=== PATIENT | male | born 2000 | race Caucasian/White ===

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

== ENCOUNTER 2019-05-28 16:15 | Emergency (ER) | payer BC ==
[~2019-05-28] VITALS: Ht 175.3 cm; Wt 74.1 kg
[~2019-05-28 16:15] MED LIST: NAPR-985 PO
[2019-05-28 16:21] VITALS: BP 140/65; PULSE 70; RESP 18; Ht 175.3 cm; Wt 74.1 kg
[2019-05-28] MEDS ORDERED: LIDOCAINE 1%/EPI (1:100,000) (MDV) 20 ML INJ ONE (17:00)
--- NOTE | 2019-05-28 17:03 | ERD ---
ER Documentation Chief Complaint Chief Complaint intermittent R great toe pain x6 months w/ swelling HPI This is a 18-year-old healthy male presents for evaluation of her right great toe ingrown toenail for the last 6 months. Patient has been trying to follow-up with podiatry, however he has continued having pain, and presents for request to have it removed. He denies fever, he denies recent history of trauma. ROS All systems reviewed and are negative except as per history of present illness. Medications Home Meds Active Scripts Naproxen* (Naprosyn*) 500 Mg Tablet, 500 MG PO BID PRN for PAIN AND/OR INFLAMMATION, #30 TAB Prov:ESTEPHANIE VITAL PA-C 07/05/18 Allergies Allergies: Coded Allergies: No Known Drug Allergies (Verified Allergy, Mild, 12/15/10) PMhx/Soc History of Surgery: No Anesthesia Reaction: No Hx Neurological Disorder: No Hx Respiratory Disorders: No Hx Cardiac Disorders: No Hx Psychiatric Problems: No Hx Miscellaneous Medical Probl: No Hx Alcohol Use: No Hx Substance Use: No Hx Tobacco Use: No Physical Exam Vitals Vital Signs Date Temp Pulse Resp B/P (MAP) Pulse Ox O2 O2 Flow FiO2 Time Delivery Rate 05/28/19 97.1 70 18 140/65 99 16:21 (90) Physical Exam Const: Afebrile, nontoxic Head: Atraumatic Eyes: Normal conjunctiva ENT: Normal external ears, nose and mouth. Neck: Resp: Normal respiratory effort Cardio: Abd: Skin: Back: Ext: There is swelling and tenderness, with evidence of right ingrown toenail at the right great toe, cap refill is less than 2 seconds. Sensation intact light touch Neur: Awake and alert Psych: Normal mood and affect Results 24 hrs Current Medications Medications Dose Sig/Curry Start Time Status Last (Trade) Ordered Route PRN Stop Time Admin Dose Reason Admin Lidocaine/ 20 ml ONCE ONCE 05/28/19 DC Epinephrine INJ 17:00 05/28/19 (Xylocaine 17:01 1%/ Epi (Mdv) 20 ml) Lidocaine/ 20 ml ONCE INJ 05/28/19 Cancel Epinephrine 17:30 05/28/19 (Xylocaine 17:31 1%/ Epi (Pf)) Lidocaine/ 20 ml ONCE INJ 05/28/19 DC Epinephrine 17:30 05/28/19 (Xylocaine 17:31 1%/ Epi (Pf)) Procedures/MDM Abscess Incision and Drainage with irrigation by WARREN Rondon: Location: Right great toe Anesthesia: 1% lidocaine Technique: Removal of ingrown toenail Packing: [None] Complications: [Neurovascularly intact post procedure] 48 hour wound check. Scar minimization instructions given. This is a 18-year-old male who presents for evaluation of ingrown toenail. Removed without complication, patient's skin symptoms have stabilized while they have been evaluated in the department and are appropriate for outpatient care and work up. Exam and w/u not consistent w/ sepsis, deep space infection, or foreign body. At discharge patient was in no distress Departure Diagnosis: Primary Impression: Ingrown nail Condition: Stable GENEVIEVE MANUEL MD May 28, 2019 17:03
[2019-05-28] MEDS ORDERED: LIDOCAINE 1%/EPI 30 ML INJ INJ SCH ×2 (17:30)
[2019-05-28] MEDS ORDERED: CEPH-443 PO (17:45)
== END 2019-05-28 17:55 | disposition home or self-care (01) ==
LOC: FTE 16:15
DX: L60.0 Ingrowing nail (principal)
CPT/HCPCS: 11750; 99283; Z7610